=== PATIENT | male | born 1990 | race Caucasian/White ===

== ENCOUNTER 2018-01-12 13:29 | Emergency (ER) ==
[2018-01-12 13:38] VITALS: BP 135/94; TEMP 98.8; BMI 27.3
--- NOTE | 2018-01-12 14:21 | DI ---
EXAM: One-view chest HISTORY: Massive trauma TECHNIQUE: Single frontal view the chest was obtained. Comparison 10/02/2009. FINDINGS: The heart is normal size. Lungs are clear. The pulmonary vasculature appears normal. IMPRESSION: No active cardiopulmonary disease.
--- NOTE | 2018-01-12 14:22 | DI ---
EXAM: Radiographs, left shoulder HISTORY: Initial presentation for left shoulder trauma. COMPARISON: None available. TECHNIQUE: Three views. FINDINGS: Bone mineralization is normal. There is no fracture or dislocation. The joint spaces are maintained. No focal soft tissue abnormality is seen. IMPRESSION: No fracture or dislocation.
--- NOTE | 2018-01-12 14:23 | DI ---
EXAM: Three views of the right shoulder HISTORY: Trauma TECHNIQUE: Internal and external AP frontal views of the right shoulder and a lateral view of the ri ght shoulder were obtained. FINDINGS: Humeral head is seen in normal position. No acute fractures are seen. The soft tissues a re normal. IMPRESSION: No acute fracture dislocation seen within the right shoulder.
--- NOTE | 2018-01-12 14:26 | DI ---
EXAM: Right clavicle two views HISTORY: Trauma FINDINGS: The clavicle is intact. AC joint is intact. Shoulder joint is poorly evaluated secondary to patient positioning. Refer to same day right shoulder series report. IMPRESSION: No clavicular fracture identified. AC joint is intact.
[2018-01-12] MEDS ORDERED: TORADOL IM STA (14:27)
--- NOTE | 2018-01-12 14:40 | CT ---
EXAM: CT of the cervical spine without contrast History: Neck trauma. Technique: Multiplanar CT images through the cervical spine were obtained without the administration of IV contrast Findings: The visualized upper lungs are free of consolidation. The visualized airway remains paten t. Straightening of the normal curvature of the cervical spine. No prevertebral soft tissue swelling. Predental space is not widened. No acute fracture or subluxation of the cervical spine. Disc space heights are preserved. Bony spinal canal is not compromised. Impression: No acute osseous abnormality of the cervical spine.
--- NOTE | 2018-01-12 14:40 | CT ---
EXAM: CT scan of the thoracic spine without contrast HISTORY: Massive trauma TECHNIQUE: Imaging of the thoracic spine was performed without contrast. Sagittal and coronal recon structions and axial images were provided for interpretation. FINDINGS: There is straightening of the thoracic spine. There is no evidence of acute compression f racture. The paraspinal soft tissues are normal. The spinous processes are intact. IMPRESSION: No evidence of acute fracture seen within the thoracic spine.
--- NOTE | 2018-01-12 15:05 | ED.PDOC ---
General ED Provider: Dr. ADENIKE CAIN Chief Complaint: Shoulder Pain/Injury Stated Complaint: BLUNT CHEST INJURY Time Seen by Physician: 13:34 (TRANSMISSION FELL ON HIS CHEST) Mode of Arrival: Walk-In Information Source: Patient Exam Limitations: No limitations Nursing and Triage Documentation Reviewed and Agree: Yes Reviewed sepsis parameters & appropriate labs ordered?: Yes System Inflammatory Response Syndrome: Not Applicable Sepsis Protocol: For patient's 13 years and over: Temp is 96.8 and below OR 101 and greater Pulse >90 BPM Resp >20/minute Acutely Altered Mental Status Are patient's symptoms suggestive of a new infection, such as: -Pneumonia -Skin, Soft Tissue -Endocarditis -UTI -Bone, Joint Infection -Implantable Device -Acute Abdominal Infection -Wound Infection -Meningitis -Blood Stream Catheter Infection -Unknown System Inflammatory Response Syndrome: Not Applicable Trauma/Injury Complaint Exam - Trauma Complaint/Exam Location of Pain or Injury: Reports: RUE (SHOULDER ), Chest, Back ( TORACIC ) Mechanism of Injury: Reports: Blunt trauma Onset/Duration: 1 HR AGO Symptoms Are: Still present Timing of Treatment: Immediate Initial Severity: Mild Current Severity: None Character: Reports: Dull Aggravating: Reports: None Alleviating: Reports: None Associated Signs and Symptoms: Denies: LOC, Confusion, Memory loss, Lethargy, Vomiting, Bleeding, Bruising, Swelling, Extremity disuse, Painful respiration, Hoarseness, Dysphagia, Hemoptysis, Significant blood loss Related History: Reports: Similar episode Penetrating Injury Risk Factors: Reports: None Nexus Low Risk Criteria: No post-midline CS tender, No evidence of intoxicat., No Altered LOC, No focal neuro deficit, No distracting injuries Immobilization Removed Post Exam: No Glascow Coma Scale (see protocol): 15 Differential Diagnoses: Fracture, Sprain, Strain Review of Systems - Review Of Systems Constitutional: Reports: No symptoms Eyes: Reports: No symptoms Ears, Nose, Mouth, Throat: Reports: No symptoms Respiratory: Reports: No symptoms Cardiac: Reports: Chest pain GI: Reports: No symptoms : Reports: No symptoms Musculoskeletal: Reports: Joint pain (SHOULDER PAIN) Skin: Reports: No symptoms Neurological: Reports: No symptoms Endocrine: Reports: No symptoms Hematologic/Lymphatic: Reports: No symptoms All Other Systems: Reviewed and Negative Past Medical History - Past Medical History Previously Healthy: Yes Endocrine: Reports: None Cardiovascular: Reports: None Respiratory: Reports: None Hematological: Reports: None Gastrointestinal: Reports: None Genitourinary: Reports: None Neuro/Psych: Reports: None Musculoskeletal: Reports: None Cancer: Reports: None - Surgical History General Surgical History: Reports: None - Family History Family History: Reports: None - Social History Smoking Status: Current every day smoker Hx Substance Use: No Alcohol Screening: None - Immunizations Tetanus Shot up to Date: Yes Physical Exam - Physical Exam Appearance: Well-appearing, No pain distress, Well-nourished Eyes: BERNARD, EOMI, Conjunctiva clear ENT: Ears normal, Nose normal, Oropharynx normal Respiratory: Airway patent, Breath sounds clear, Breath sounds equal, Respirations nonlabored Cardiovascular: RRR, Pulses normal, No rub, No murmur GI/: Soft, Nontender, No masses, Bowel sounds normal, No Organomegaly Musculoskeletal: Normal strength, ROM intact, No edema, No calf tenderness Skin: Warm, Dry, Normal color Neurological: Sensation intact, Motor intact, Reflexes intact, Cranial nerves intact, Alert, Oriented Psychiatric: Affect appropriate, Mood appropriate Critical Care Note - Critical Care Note Total Time (mins): 0 Course - Course Hematology/Chemistry: 01/12/18 13:55 01/12/18 14:25 Orders, Labs, Meds: Lab Review 01/12/18 01/12/18 13:55 14:25 WBC 10.62 H RBC 4.38 L Hgb 14.4 Hct 41.0 L MCV 93.6 MCH 32.9 H MCHC 35.1 RDW Coeff of Amaya 12.5 Plt Count 324 Immature Gran % (Auto) 0.2 Neut % (Auto) 65.2 Lymph % (Auto) 25.7 Daggett % (Auto) 5.6 Eos % (Auto) 2.9 Baso % (Auto) 0.4 Immature Gran # (Auto) 0.0 Neut # (Auto) 6.9 Lymph # (Auto) 2.7 Daggett # (Auto) 0.6 Eos # (Auto) 0.3 Baso # (Auto) 0.0 Sodium 143 Potassium 4.0 Chloride 110 H Carbon Dioxide 26 Anion Gap 11.0 BUN 12 Creatinine 0.79 Estimated GFR (MDRD) 119.00 BUN/Creatinine Ratio 15.18 Glucose 111 H Calcium 9.7 Total Bilirubin 0.6 AST 22 ALT 30 Alkaline Phosphatase 72 Total Protein 7.5 Albumin 4.2 Globulin 3.3 Albumin/Globulin Ratio 1.27 Orders Category Date Time Status EKG-(ED ONLY) Stat CARDIO 01/12/18 13:58 Completed NPO REMINDER: IMAGING ONCE CARE 01/12/18 14:10 Active NPO REMINDER: IMAGING ONCE CARE 01/12/18 14:11 Active ED IV/MEDIPORT/POWERPORT .ONCE EMERGENCY 01/12/18 14:11 Active CBC W/ AUTO DIFF Stat LAB 01/12/18 13:55 Completed COMPREHENSIVE METABOLIC PANEL Stat LAB 01/12/18 14:25 Completed CREATINE KINASE Stat LAB 01/12/18 14:25 Received TROPONIN I Stat LAB 01/12/18 14:25 Received URINALYSIS C & S IF INDICATED Stat LAB 01/12/18 13:55 Uncollected 0.9 % Sodium Chloride [Saline Flush] MEDS 01/12/18 14:11 Active 1 syr IVF PRN PRN Ketorolac Tromethamine [Toradol] MEDS 01/12/18 14:27 Discontinued 60 mg IM ONCE STA CHEST, 1V AP ONLY Stat RADS 01/12/18 13:55 Completed CLAVICLE, RIGHT 2 VIEWS Stat RADS 01/12/18 13:[address] ABDOMEN/PELVIS W CONTRAST Stat RADS 01/12/18 14:[address] CERVICAL SPINE W/O CONTRAST Stat RADS 01/12/18 13:[address] CHEST W/CONTRAST Stat RADS 01/12/18 14:[address] THORACIC SPINE W/O CONTRAST Stat RADS 01/12/18 13:56 Completed SHOULDER, LEFT MIN 2V Stat RADS 01/12/18 13:56 Completed SHOULDER, RIGHT MIN 2V Stat RADS 01/12/18 13:57 Completed Medications Generic Name Dose Route Start Last Admin Trade Name Freq PRN Reason Stop Dose Admin Sodium Chloride 1 syr 01/12/18 14:11 Saline Flush IVF PRN PRN To flush IV Discontinued Medications Generic Name Dose Route Start Last Admin Trade Name Freq PRN Reason Stop Dose Admin Ketorolac Tromethamine 60 mg 01/12/18 14:27 01/12/18 14:33 Toradol IM 01/12/18 14:28 60 mg ONCE STA Administration Vital Signs: Temp Pulse Resp BP Pulse Ox 01/12/18 13:33 98.8 F 101 H 22 135/94 H 99 Departure - Departure Time of Disposition: 15:05 (LEFT AMA WITH VILMA PRESENT I DISCUSSED THAT THE WORK UP IN NOT COMPLETE. W/O CONTRASTED CT HE WOULD RUN THE RISK OF SERIOUS INJURIES HE STILL REUSED TO STAY) Disposition: AMA Discharge Problem: Shoulder pain Instructions: Blunt Chest Trauma (ED) Condition: Good Pt referred to PMD for follow-up: Yes IPMP verified?: Yes Additional Instructions: Please call your Family Physician as soon as possible to schedule a follow-up appointment. Allergies/Adverse Reactions: Allergies No Known Allergies Allergy (Unverified 01/12/18 13:33) Home Medications: Ambulatory Orders 1 [No Reported Medications] 01/12/18
== END 2018-01-12 14:58 | disposition left against medical advice (07) ==
LOC: ED 13:29
DX: S29.9XXA Unspecified injury of thorax, initial encounter (principal); M25.511 Pain in right shoulder; M54.6 Pain in thoracic spine; W20.8XXA Other cause of strike by thrown, projected or falling object, initial encounter; F17.210 Nicotine dependence, cigarettes, uncomplicated
CPT/HCPCS: 36415; 80053; 82550; 82553; 84484; 85025; 93005; 93010; 96372; 99284